=== PATIENT | female | born 1955 | race Two or more races ===

== ENCOUNTER 2024-07-12 19:09 | Inpatient (IN) | payer MEDICARE, OTHER ==
[~2024-07-12] VITALS: Ht 154.9 cm; Wt 81.6 kg
[2024-07-12 19:14] VITALS: O2SAT 97
[2024-07-12] MEDS ORDERED: ACETAMINOPHEN ES 500 MG TABLET ONE (19:39)
[2024-07-12] MEDS: ACETAMINOPHEN ES 500 MG TABLET PO ONE (19:45)
[2024-07-12 19:54] LABS: BASOPHILS % (AUTO) 0.3 % (0.0-2.0); CALCIUM, SERUM 8.9 mg/dL (8.5-10.1); CARBON DIOXIDE 25 mmol/L (21-32); CHLORIDE 99 mmol/L (98-107); CREATININE 1.2 mg/dL (0.6-1.3); EOSINOPHILS % (AUTO) 0.5 % (0.0-6.0); GLUCOSE 385 mg/dL (74-106); HEMATOCRIT 36 % (33-45); HEMOGLOBIN 12.3 g/dL (11.5-14.8); LYMPHOCYTES # (AUTO) 0.4 K/uL (0.8-4.8); LYMPHOCYTES % (AUTO) 8.3 % (20.0-44.0); MEAN CORPUSCULAR HEMOGLOBIN 27 PG (26.0-33.0); MEAN CORPUSCULAR HGB CONC 34 g/dl (31.0-36.0); MEAN CORPUSCULAR VOLUME 80 fL (82-100); MONOCYTES # (AUTO) 0.5 K/uL (0.1-1.30); MONOCYTES % (AUTO) 11.6 % (2.0-12.0); NEUTROPHILS # (AUTO) 3.5 K/uL (1.8-8.9); NEUTROPHILS % (AUTO) 79.3 % (43.0-81.0); POTASSIUM 3.9 mmol/L (3.5-5.1); RED BLOOD CELL COUNT(AUTO) 4.52 MIL/uL (4.0-5.2); RED CELL DISTRIBUTION WIDTH 16.1 % (11.5-15.0); SODIUM SERUM 134 mmol/L (136-145); UREA NITROGEN, BLOOD 17 mg/dL (7-18); WHITE BLOOD COUNT (AUTO) 4.5 K/uL (4.3-11.0)
[2024-07-12 19:55] LABS: SERUM AMMONIA 77 umol/L (11-32)
[2024-07-12 20:00] LABS: ALANINE AMINOTRANSFERASE 44 U/L (12-78); ALBUMIN 2.9 g/dL (3.4-5.0); ALKALINE PHOSPHATASE 240 U/L (46-116); ASPARTATE AMINOTRANSFERASE 40 U/L (15-37); BILIRUBIN,DIRECT 0.4 mg/dL (0.0-0.2); BILIRUBIN,TOTAL 1.2 mg/dL (0.2-1.0)
[2024-07-12 20:01] LABS: ALCOHOL, BLOOD < 3 mg/dL (0-10)
[2024-07-12 20:02] LABS: INR 1.08 (0.91-1.10); PARTIAL THROMBOPLASTIN TIME 26.4 SEC (24.3-34.3); PROTHROMBIN TIME 11.4 SECS (9.2-11.1)
[2024-07-12 20:04] LABS: LACTIC ACID 3.2 mmol/L (0.4-2.0)
[2024-07-12 20:10] LABS: PLATELET COUNT (AUTO) 56 K/uL (150-450)
[2024-07-12 20:12] LABS: BAND % (MANUAL) 2 % (0.0-5.0); LYMPHOCYTES % (MANUAL) 11 % (16-48); MONOCYTES % (MANUAL) 10 % (0-11.0); NEUTROPHILS % (MANUAL) 77 (42-76); PLATELET ESTIMATE DECRE
[2024-07-12 20:13] LABS: ANISOCYTOSIS 1+
[2024-07-12 20:59] LABS: APPEARANCE,URINE SLIGHTLY CLOUDY (CLEAR); BILIRUBIN,URINE NEGATIVE (NEGATIVE); BLOOD, URINE 1+ Ery/uL (NEGATIVE); COLOR,URINE YELLOW (YELLOW); KETONES,URINE NEGATIVE (NEGATIVE); LEUKOCYTE ESTERASE ,URINE 1+ (NEGATIVE); NITRITE, URINE POSITIVE (NEGATIVE); PROTEIN,URINE NEGATIVE (NEGATIVE); UGLUCOSE 3+ mg/dL (NEGATIVE); UROBILINOGEN,URINE 0.2 EU/dL (0.2)
[2024-07-12] MEDS ORDERED: LACTULOSE 10 G/15 ML UDC (PYXIS) ONE (21:01)
[2024-07-12] MEDS ORDERED: PIPERACI/TAZO 3.375GM/D5W 50ML PB IV ONE (21:02)
[2024-07-12 21:04] LABS: ADD URINE CULTURE YES; BACTERIA,URINE 2+ /HPF (None Seen); SQUAMOUS EPITHELIAL CELL,UR 0-2 /HPF (None Seen)
[2024-07-12] MEDS: PIPERACILLIN /TAZOBACTAM 3.375 G in IV D5W 50 ML IV ONE (21:10)
[2024-07-12] MEDS: LACTULOSE 10 G/15 ML UDC (PYXIS) PO ONE (21:10)
[2024-07-12 21:17] LABS: AMPHETAMINE, URINE NEGATIVE (NEGATIVE); BARBITURATE, URINE NEGATIVE (NEGATIVE); BENZODIAZEPINE, URINE NEGATIVE (NEGATIVE); CANNABINOID, URINE NEGATIVE (NEGATIVE); COCCAINE, URINE NEGATIVE (NEGATIVE); OPIATE, URINE NEGATIVE (NEGATIVE); PHENCYCLIDINE SCREEN,URINE NEGATIVE (NEGATIVE)
[2024-07-12] MEDS ORDERED: MAGNESIUM HYDROXIDE 30 ML UDC PO PRN (21:30)
[2024-07-12] MEDS ORDERED: ZOLPIDEM TARTRATE 5 MG TABLET PO PRN (21:30)
[2024-07-12] MEDS ORDERED: Z GUARD REMEDY 4 OZ OINT TP PRN (21:30)
[2024-07-12 21:45] VITALS: BP 103/44; TEMP 98.4; O2SAT 97
[2024-07-12] MEDS ORDERED: DEXTROSE 50%-WATER 50 ML DISP.SYRIN IV PRN ×2 (22:00→23:30)
[2024-07-12] MEDS ORDERED: PIPERACILLIN /TAZOBACTAM 3.375 G in IV D5W 50 ML IV ONE (22:30)
[2024-07-12] MEDS: INSULIN REGULAR, HUMAN 100 UNIT/ML 3 ML VIAL SQ PRN (22:31)
[2024-07-12] MEDS: BLOOD SUGAR DIAGNOSTIC 1 EACH STRIP IN SCH (22:35)
[2024-07-12] MEDS: IV NS 0.9% 1,000 ML IV PRN (22:39)
[2024-07-12] MEDS: *INSULIN REGULAR(HUMULIN R)HUM 100 UNIT/ML VIAL SQ PRN (23:42)
[2024-07-13] VITALS: BP 108/53; TEMP 98.4; O2SAT 98
[2024-07-13] MEDS: PIPERACI/TAZO 3.375GM/D5W 50ML PB IV ONE (02:29)
[2024-07-13] MEDS: PIPERACILLIN /TAZOBACTAM 3.375 G in IV D5W 50 ML IV ONE (02:49)
[2024-07-13 04:00] VITALS: BP 103/44; TEMP 98.1; O2SAT 96
[2024-07-13] MEDS: INSULIN REGULAR, HUMAN 100 UNIT/ML 3 ML VIAL SQ PRN (06:12)
[2024-07-13 06:43] LABS: BASOPHILS % (AUTO) 0.5 % (0.0-2.0); EOSINOPHILS # (AUTO) 0.1 K/uL (0.0-0.7); EOSINOPHILS % (AUTO) 1.6 % (0.0-6.0); HEMATOCRIT 28 % (33-45); HEMOGLOBIN 9.3 g/dL (11.5-14.8); LYMPHOCYTES # (AUTO) 0.7 K/uL (0.8-4.8); LYMPHOCYTES % (AUTO) 18.9 % (20.0-44.0); MEAN CORPUSCULAR HEMOGLOBIN 27 PG (26.0-33.0); MEAN CORPUSCULAR HGB CONC 33 g/dl (31.0-36.0); MEAN CORPUSCULAR VOLUME 80 fL (82-100); MONOCYTES # (AUTO) 0.7 K/uL (0.1-1.30); RED BLOOD CELL COUNT(AUTO) 3.49 MIL/uL (4.0-5.2); RED CELL DISTRIBUTION WIDTH 16.3 % (11.5-15.0); WHITE BLOOD COUNT (AUTO) 3.5 K/uL (4.3-11.0)
[2024-07-13] MEDS: BLOOD SUGAR DIAGNOSTIC 1 EACH STRIP VI SCH (07:18)
[2024-07-13 07:29] LABS: PLATELET COUNT (AUTO) 42 K/uL (150-450)
[2024-07-13] MEDS: HYDROCODONE/APAP 10/325MG TABLET PO PRN (07:40)
[2024-07-13 07:44] LABS: LYMPHOCYTES % (MANUAL) 16 % (16-48); MONOCYTES % (MANUAL) 20 % (0-11.0); NEUTROPHILS % (MANUAL) 64 (42-76); PLATELET ESTIMATE DECREASED
[2024-07-13 07:50] LABS: ALBUMIN 1.9 g/dL (3.4-5.0); BILIRUBIN,TOTAL 0.7 mg/dL (0.2-1.0); CALCIUM, SERUM 6.8 mg/dL (8.5-10.1); CREATININE 0.8 mg/dL (0.6-1.3); MAGNESIUM 1.6 mg/dL (1.8-2.4); PHOSPHORUS 2.6 mg/dL (2.5-4.9); TOTAL PROTEIN, SERUM 5.5 g/dL (6.4-8.2)
[2024-07-13 07:52] LABS: POTASSIUM 2.4 mmol/L (3.5-5.1)
[2024-07-13 08:25] VITALS: BP 118/68; TEMP 98.2; O2SAT 98
[2024-07-13] MEDS: LACTULOSE 10 G/15 ML UDC (PYXIS) PO SCH (09:37)
[2024-07-13] MEDS: PIPERACILLIN /TAZOBACTAM 3.375 G in IV D5W 50 ML IV SCH (09:37)
[2024-07-13] MEDS: MAGNESIUM OXIDE 400 MG TABLET PO ONE (10:06)
[2024-07-13] MEDS ORDERED: ISOS60TA72 PO (11:11)
[2024-07-13] MEDS ORDERED: SEMA0.25 SQ (11:11)
[2024-07-13] MEDS ORDERED: ANAS1TAB50 PO (11:11)
[2024-07-13] MEDS ORDERED: METO25TA20 PO (11:11)
[2024-07-13] MEDS ORDERED: CITA20TA16 PO (11:11)
[2024-07-13] MEDS ORDERED: GLIM4TAB PO (11:11)
[2024-07-13] MEDS ORDERED: MECL-182 PO (11:11)
[2024-07-13] MEDS ORDERED: DAPA10TA PO (11:11)
[2024-07-13] MEDS ORDERED: CARV3.122 PO (11:11)
[2024-07-13] MEDS ORDERED: CLON2TAB11 PO (11:11)
[2024-07-13] MEDS ORDERED: MIRT-90 PO (11:11)
[2024-07-13] MEDS ORDERED: SIME180C7 PO (11:11)
[2024-07-13] MEDS ORDERED: OXYB15TA19 PO (11:11)
[2024-07-13] MEDS ORDERED: CETI10TA14 PO (11:11)
[2024-07-13] MEDS ORDERED: PANT40TA49 PO (11:11)
[2024-07-13] MEDS ORDERED: LEVO150T8 PO (11:11)
[2024-07-13] MEDS ORDERED: INSU100I30 SQ (11:11)
[2024-07-13] MEDS ORDERED: GABA-536 PO (11:11)
[2024-07-13] MEDS ORDERED: BUSP10TA35 PO (11:11)
[2024-07-13] MEDS ORDERED: LINA5TAB PO (11:11)
[2024-07-13] MEDS: POTASSIUM CHLORIDE 20 MEQ TAB.PRT.SR PO ONE (12:19)
[2024-07-13] MEDS: MORPHINE SULFATE INJ 2 MG/ML DISP.SYRIN IV PRN (13:30)
[2024-07-13 16:02] VITALS: BP 139/67; TEMP 99.3; O2SAT 96
[2024-07-13] MEDS: GLUCERNA SHAKE 237 ML CAN PO SCH (17:41)
[2024-07-13 20:00] VITALS: BP_SYST 114; BP_SYST 144; BP_DIAS 63; BP_DIAS 68; TEMP 97.5; O2SAT 97
[2024-07-13] MEDS: ACETAMINOPHEN 325 MG TABLET PO PRN (21:28)
[2024-07-14 08:00] VITALS: BP 133/64; TEMP 98.4; O2SAT 96
[2024-07-14 08:18] LABS: CALCIUM, SERUM 8.7 mg/dL (8.5-10.1); CREATININE 0.8 mg/dL (0.6-1.3); POTASSIUM 3.3 mmol/L (3.5-5.1)
[2024-07-14] MEDS: POTASSIUM CHLORIDE 20 MEQ TAB.PRT.SR PO SCH (10:34)
[2024-07-14] MEDS: POTASSIUM CHLORIDE 20 MEQ TAB.PRT.SR PO ONE (12:16)
[2024-07-14 16:00] VITALS: BP 136/66; TEMP 99.1; O2SAT 96
[2024-07-14] MEDS: MAG HYDROX/AL HYDROX/SIMETH 30 ML UDC PO PRN (18:17)
[2024-07-15 06:56] LABS: CREATININE 0.7 mg/dL (0.6-1.3); POTASSIUM 3.1 mmol/L (3.5-5.1)
[2024-07-15 07:15] LABS: BASOPHILS % (AUTO) 0.6 % (0.0-2.0); EOSINOPHILS # (AUTO) 0.1 K/uL (0.0-0.7); EOSINOPHILS % (AUTO) 2.6 % (0.0-6.0); HEMATOCRIT 30 % (33-45); HEMOGLOBIN 10.1 g/dL (11.5-14.8); LYMPHOCYTES # (AUTO) 0.3 K/uL (0.8-4.8); LYMPHOCYTES % (AUTO) 14.3 % (20.0-44.0); MEAN CORPUSCULAR HEMOGLOBIN 26 PG (26.0-33.0); MEAN CORPUSCULAR HGB CONC 33 g/dl (31.0-36.0); MEAN CORPUSCULAR VOLUME 79 fL (82-100); MONOCYTES # (AUTO) 0.5 K/uL (0.1-1.30); MONOCYTES % (AUTO) 19.4 % (2.0-12.0); NEUTROPHILS # (AUTO) 1.5 K/uL (1.8-8.9); NEUTROPHILS % (AUTO) 63.1 % (43.0-81.0); RED BLOOD CELL COUNT(AUTO) 3.84 MIL/uL (4.0-5.2); RED CELL DISTRIBUTION WIDTH 16.3 % (11.5-15.0); WHITE BLOOD COUNT (AUTO) 2.4 K/uL (4.3-11.0)
[2024-07-15 07:29] LABS: PLATELET COUNT (AUTO) 41 K/uL (150-450)
[2024-07-15 08:00] VITALS: BP 141/79; TEMP 98.4; O2SAT 96
[2024-07-15 08:16] LABS: BAND % (MANUAL) 2 % (0.0-5.0); EOSINOPHILS % (MANUAL) 2 % (0-4); LYMPHOCYTES % (MANUAL) 13 % (16-48); MONOCYTES % (MANUAL) 18 % (0-11.0); NEUTROPHILS % (MANUAL) 65 (42-76); PLATELET ESTIMATE DECREASED
[2024-07-15 08:17] LABS: ANISOCYTOSIS 1+
[2024-07-15] MEDS: ONDANSETRON HCL/PF 4 MG/2 ML VIAL IVP PRN (09:26)
[2024-07-15] MEDS: POTASSIUM CHLORIDE 20 MEQ TAB.PRT.SR PO ONE ×2 (09:35→09:37)
[2024-07-15] MEDS ORDERED: MECLIZINE HCL 12.5 MG TABLET PO PRN (10:00)
[2024-07-15] MEDS: ANASTROZOLE 1 MG TABLET PO SCH (12:14)
[2024-07-15] MEDS: busPIRone 5 MG TABLET PO SCH (13:16)
[2024-07-15] MEDS: GABAPENTIN 400 MG CAPSULE PO SCH (13:16)
[2024-07-15 16:00] VITALS: BP 134/61; TEMP 98.2; O2SAT 94
[2024-07-15] MEDS: METOPROLOL TARTRATE 25 MG TABLET PO SCH (16:50)
[2024-07-15] MEDS ORDERED: CARVEDILOL 3.125 MG TABLET PO SCH (17:00)
[2024-07-15 20:00] VITALS: BP 114/55; TEMP 98.8; O2SAT 93
[2024-07-15] MEDS: clonazePAM 1 MG TABLET PO SCH (21:20)
[2024-07-15] MEDS: MIRTAZAPINE 15 MG TABLET PO SCH (21:20)
[2024-07-15] MEDS: CITALOPRAM HYDROBROMIDE 20 MG TABLET PO SCH (21:20)
[2024-07-15] MEDS: cetrizine 10 MG TABLET PO SCH (21:20)
[2024-07-15] MEDS: OXYBUTYNIN CHLORIDE ER 5 MG TAB PO SCH (21:21)
[2024-07-15] MEDS: INSULIN GLARGINE, 100 UNIT/ML CARTRIDGE SQ SCH (21:43)
[2024-07-16 07:30] VITALS: BP 129/66; TEMP 98.1; O2SAT 96
[2024-07-16] MEDS: LEVOTHYROXINE SODIUM 75 MCG TABLET PO SCH (08:08)
[2024-07-16] MEDS: LINAGLIPTIN 5 MG TABLET PO SCH (08:08)
[2024-07-16] MEDS: ISOSORBIDE MONONITRATE (30MG) 30 MG TAB.SR.24H PO SCH (08:08)
[2024-07-16 08:09] VITALS: BP 129/66
[2024-07-16] MEDS: PANTOPRAZOLE 40 MG TABLET.DR PO SCH (08:09)
[2024-07-16] MEDS ORDERED: NITR100C6 PO (09:58)
[2024-07-16] MEDS ORDERED: HYDR-4303 PO (09:58)
== END 2024-07-16 15:00 | DRG 690 ==
LOC: ER 19:11 → TELE 21:22 → MED 07-13 10:55
PROVIDERS: ADMIT Nurse Practitioner Acute Care; ATTEND Internal Medicine
DX: N39.0 Urinary tract infection, site not specified (principal); E44.0 Moderate protein-calorie malnutrition; E87.20 Acidosis, unspecified; C79.31 Secondary malignant neoplasm of brain; C41.9 Malignant neoplasm of bone and articular cartilage, unspecified; C78.7 Secondary malignant neoplasm of liver and intrahepatic bile duct; D69.6 Thrombocytopenia, unspecified; E11.9 Type 2 diabetes mellitus without complications; K74.60 Unspecified cirrhosis of liver; G93.89 Other specified disorders of brain; Z85.3 Personal history of malignant neoplasm of breast; E88.09 Other disorders of plasma-protein metabolism, not elsewhere classified; E03.9 Hypothyroidism, unspecified; B96.89 Other specified bacterial agents as the cause of diseases classified elsewhere; R74.01 Elevation of levels of liver transaminase levels; S92.511A Displaced fracture of proximal phalanx of right lesser toe(s), initial encounter for closed fracture; W18.30XA Fall on same level, unspecified, initial encounter; Y92.003 Bedroom of unspecified non-institutional (private) residence as the place of occurrence of the external cause
CPT/HCPCS: 36415; 70450-TC; 71045-TC; 72131-TC; 73630-TC; 80048-TC; 80053-TC; 80076-TC; 81001; 82140-TC; 82550-TC; 82962-TC; 83605-TC; 83735-TC; 84100-TC; 84443-TC; 84484-TC; 85025-TC; 85730-TC; 87040-TC; 87086-TC; 97112-TC; 97116-TC; 97530-TC; A4223; G0378; G0480; J1815; J2270; J2405; J2543; J7030; J7060; J8597

== ENCOUNTER 2024-09-29 21:49 | Emergency (ER) | payer MEDICARE, OTHER ==
[~2024-09-29] VITALS: Ht 162.6 cm; Wt 88.5 kg
[~2024-09-29 21:49] MED LIST: ANAS1TAB50 PO; BUSP10TA35 PO; CARV3.122 PO; CETI10TA14 PO; CITA20TA16 PO; CLON2TAB11 PO; DAPA10TA PO; GABA-536 PO; GLIM4TAB PO; INSU100I30 SQ; ISOS60TA72 PO; LEVO150T8 PO; LINA5TAB PO; MECL-182 PO; METO25TA20 PO; MIRT-90 PO; NITR100C6 PO; OXYB15TA19 PO; PANT40TA49 PO; SEMA0.25 SQ; SIME180C7 PO
[2024-09-29] MEDS: HYDROCODONE/APAP 5/325MG TABLET PO ONE (22:28)
[2024-09-29] MEDS ORDERED: HYDROCODONE/APAP 5/325MG TABLET ONE (22:28)
[2024-09-29] MEDS ORDERED: GABA-536 PO (23:18)
[2024-09-29 23:59] VITALS: BP 142/83; TEMP 98.8; O2SAT 98
== END 2024-09-30 | disposition home or self-care (01) ==
LOC: ER 21:53
DX: S13.4XXA Sprain of ligaments of cervical spine, initial encounter (principal); S23.3XXA Sprain of ligaments of thoracic spine, initial encounter; S33.5XXA Sprain of ligaments of lumbar spine, initial encounter; S09.90XA Unspecified injury of head, initial encounter; C79.51 Secondary malignant neoplasm of bone; E11.9 Type 2 diabetes mellitus without complications; Z79.811 Long term (current) use of aromatase inhibitors; Z79.84 Long term (current) use of oral hypoglycemic drugs; Z79.899 Other long term (current) drug therapy; Z85.3 Personal history of malignant neoplasm of breast; Z86.79 Personal history of other diseases of the circulatory system; Z87.19 Personal history of other diseases of the digestive system; W01.0XXA Fall on same level from slipping, tripping and stumbling without subsequent striking against object, initial encounter; Y93.89 Activity, other specified; Y92.89 Other specified places as the place of occurrence of the external cause; Y99.8 Other external cause status
CPT/HCPCS: 70450-TC; 72125-TC; 72128-TC; 72131-TC; 73564-TC